=== PATIENT | female | born 1965 | race Caucasian/White ===

== ENCOUNTER → 2022-05-28 | Outpatient (CLI) | payer OTHER ==
--- NOTE | 2022-05-28 10:20 | US ---
EXAMINATION TYPE: US pelvic complete DATE OF EXAM: 05/28/2022 COMPARISON: NONE CLINICAL HISTORY: R10.2 PELVIC AND PERINEAL PAIN. prior hysterectomy, painful intercourse TECHNIQUE: Transabdominal (TA). Transabdominal sonographic images of the pelvis were acquired. EXAM MEASUREMENTS: Uterus: Surgically absent cm Right Ovary: 2.3 x 2.1 x 1.1 cm Left Ovary: 1.8 x 2.0 x 1.1 cm 1. Uterus: surgically absent 2. Endometrium: surgically absent 3. Right Ovary: wnl 4. Left Ovary: wnl 5. Bilateral Adnexa: wnl 6. Posterior cul-de-sac: no free fluid seen IMPRESSION: No evidence for acute process. No organizing fluid collection or mass.
== END | disposition home or self-care (01) ==
LOC: RADUSWWP 09:26
PROVIDERS: ATTEND Obstetrics & Gynecology
DX: R10.2 Pelvic and perineal pain (principal); N94.10 Unspecified dyspareunia; Z90.710 Acquired absence of both cervix and uterus
CPT/HCPCS: 76856